=== PATIENT | male | born 1960 | race Caucasian/White ===

== ENCOUNTER 2017-05-07 18:30 | Outpatient (RCR) | payer SELFPAY ==
--- NOTE | 2017-04-28 17:51 | HP.PTEVAL ---
Patient's Visit Information FRANCISCO REESE is a 57 year old M referred to Physical Therapy by [facility] of Town [facility] with a diagnosis of R hip pain. Date of Evaluation: 04/23/17 Physical Therapist: Truong Uribe - Visit Plan Frequency: 2x /Week Duration: 4 Weeks Plan: Start with DN to R posterior hip, piriformis muscle. Piriformis stretching, hip IR/ER stretching. - Subjective Subjective: Pt. is here today for his initial evaluation with diagnosis of R hip pain. Pt. reports he has been battling this problem for ~9 months with progressive increase in symptoms. Pt. reports having no mechanism of injury. 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 He reports having increased posterior R hip pain while running now. He reports trialing multiple interventions including massage, US, icing, heating, stretching and strengthening. He reports having occassional sciatica like symptoms down RLE as well. 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 He denies N/T and no marked weakness. No history of lumbar spine pain. Pt. is now hopeful to trial dry needling to reduce symptoms. Pt. would like to run without issues. - Pain R hip Pain Intensity (Out of 10): 2 Pain Intensity Range: 0, 6 Comment: worse with running - Objective POSTURE: Pt. has normal posture in stance, no iliac crest height differences, normal lumbar positioning. Pt. has equal wt. shifting between bilateral LEs. PALPATION: Pt. has marked tenderness at R piriformis muscle belly, and pain at insertion at greater trochanter. Pt. has slight tenderness at S1/S2 on R side. No pain throughout lumbar spine, but hypomobility noted throughout. NEUROLOGICAL: Pt. has normal sensation to light and shapr touch. Pt. has 2+ bilateral achilles and patellar DTR bilaterally. Pt. is able to rise on heels and toes without issues. ROM: LUMBAR SPINE- flexion nil loss NE, ext min loss NE, SB nil loss bilat NE, rotation nil/min loss NE. R hip- flexion 122deg NE, IR 30 deg mild increase NW (groin pain), ER 88deg mild increase NW, abd 55deg, ext 15deg. MMT: RLE- ankle/knee 5/5 throughout; hip- flexion 5-/5, abd 5-/5, ext 5-/5, ER 4/5, IR 4/5. Core strength- fair. - Special Tests L/S Slump test left side: Negative L/S Slump test right side: Negative L/S Left Straight Leg Raise: Negative L/S Right Straight Leg Raise: Negative Lumbar Standing: Flexion - Mechanical Response: No effect Lumbar Standing: Flexion - Symptoms During Testing: No effect Lumbar Standing: Flexion - Symptoms After Testing: No effect Lumbar Standing: Extension - Mechanical Response: No effect Lumbar Standing: Extension - Symptoms During Testing: No effect Lumbar Standing: Extension - Symptoms After Testing: No effect Lumbar Standing: Right Side Glides - Mechanical Response: No effect Lumbar Standing: Right Side [place] - Symptoms During Testing: No effect Lumbar Standing: Right Side [place] - Symptoms After Testing: No effect Lumbar Standing: Left Side [place] - Mechanical Response: No effect Lumbar Standing: Left Side [place] - Symptoms During Testing: No effect Lumbar Standing: Left Side [place] - Symptoms After Testing: No effect R Hip Scour: Negative R Hip Quadrant - Intraarticular Pathology: Negative R Hip ASHLEY - Intraarticular Pathology: Negative R Hip FADDIR - Labrum: Negative R Hip Pat - IT Band: Negative - Goals Goal 1:: Pt. to be I with HEP. Goal Time Frame: 4-6 Weeks Goal 2:: Pt. to have increased hip IR to 40deg. Goal Time Frame: 4-6 Weeks Goal 3:: Pt. to run without pain in R hip Goal Time Frame: 4-6 Weeks - Rehabilitation Potential Physical Therapy Diagnosis: Pt. has signs and symptoms consistent with piriformis syndrome on R side. Pt. would benefit from DN to reduce muscle tension allowing for increased mobility and reduce symptoms. Pt. was also given exercises to increase hip IR/ER strength to increase stability with all of his running. Rehabilitation Potential: Good - Anticipated Interventions Patient/Client Instruction: Educate patient on: Condition, Plan of Care, Risk Factors, Benefits of Fitness Program For the Purpose of:: To improve decision making, To facilitate caregiver knowledge, To improve self management, To prevent re-injury, To improve ability to perform tasks related to life management, To improve tolerance to ADL's Therapeutic Exercise to Include: Strength training, Power training, Postural training, Flexibilty training, Passive ROM, Active ROM, Aarti Exercises For the Purpose of:: To decrease pain, To increase ROM, To improve nutrient delivery to tissue, To increase oxygenation perfusion, To improve muscle performance and motor function, To decrease soft tissue restriction, To increase flexibility/ROM, To improve endurance, To improve balance Manual Therapy Techniques to Include: Trigger point massage, Mobilization, Passive ROM, Functional dry needling, Soft tissue mobilization For the Purpose of:: To decrease pain, To increase ROM, To improve nutrient delivery to tissue, To increase oxygenation perfusion, To improve muscle performance and motor function Thank you for the opportunity to evaluate your patient. For Medicare and Medicare HMO plans, please review the plan of care and approve it. It will need to be FAXED BACK to us at [phone] for Medicare purposes. Please let me know if there are questions or concerns regarding this plan of care. Physician Signature: Date:
--- NOTE | 2017-09-14 19:54 | HP.PT.NRP ---
HP - Discharge Summary (1) - Patient Information FRANCISCO REESE was seen in my office for initial evaluation on 04/23/17. The following Plan of Care was established for this patient: Initial Frequency: 2x /Week Initial Duration: 4 Weeks - Anticipated Interventions Patient/Client Instruction: Educate patient on: Condition, Plan of Care, Risk Factors, Benefits of Fitness Program For the Purpose of:: To improve decision making, To facilitate caregiver knowledge, To improve self management, To prevent re-injury, To improve ability to perform tasks related to life management, To improve tolerance to ADL's Therapeutic Exercise to Include: Strength training, Power training, Postural training, Flexibilty training, Passive ROM, Active ROM, Aarti Exercises For the Purpose of:: To decrease pain, To increase ROM, To improve nutrient delivery to tissue, To increase oxygenation perfusion, To improve muscle performance and motor function, To decrease soft tissue restriction, To increase flexibility/ROM, To improve endurance, To improve balance Manual Therapy Techniques to Include: Trigger point massage, Mobilization, Passive ROM, Functional dry needling, Soft tissue mobilization For the Purpose of:: To decrease pain, To increase ROM, To improve nutrient delivery to tissue, To increase oxygenation perfusion, To improve muscle performance and motor function This patient was last seen in our office 05/07/17. Pertinent comments regarding their Physical therapy will appear below: Pt. was seen for DN to lumbar spine and R gluteal region. Pt. was not having marked decrease in symptoms. Pt. has not been seen in ~4 months and will be DC from PT at this point in time. At this point I will be discontinuing this patient from physical therapy. I would be happy to see this patient again in the future if found appropriate by the physician. Thank you! Truong Uribe
== END 2017-05-07 19:00 | disposition home or self-care (01) ==
LOC: PT 18:30
DX: R69 Illness, unspecified (principal)